=== PATIENT | male | born 1960 | race Hispanic/Latino ===

== ENCOUNTER 2017-04-10 23:18 | Emergency (ER) | payer OTHER ==
[2017-04-10 23:20] VITALS: BMI 30.8
--- NOTE | 2017-04-11 00:09 | C.PDOC ---
History Of Present Illness Patient presents to ED with complaints of being depressed and suicidal ideation. Patient denies suicidal plan and any other physical complaints. Patient was admitted in the past for similar symptoms. Time Seen by Provider: 04/11/17 00:09 Chief Complaint (Nursing): Psychiatric Evaluation History Per: Patient History/Exam Limitations: no limitations Onset/Duration Of Symptoms: Hrs Current Symptoms Are (Timing): Still Present Suicide/Self Injury Attempted (Context): None Modifying Factor(s): None Associated Symptoms: Depression, Suicidal Thoughts. denies: Suicidal Plan Involuntary Hold By: None Recent travel outside of the [place]: No Past Medical History Reviewed: Historical Data, Nursing Documentation, Vital Signs Vital Signs: Last Vital Signs Temp 97.7 F 04/11/17 03:39 Pulse 76 04/11/17 05:32 Resp 18 04/11/17 05:32 BP 160/95 H 04/11/17 05:32 Pulse Ox 98 04/11/17 05:32 - Medical History PMH: Diabetes (Type II), HTN - [facility] GROUP PSYCHOTHERAPY (04/24/16) INDIVIDUAL PSYCHOTHERAPY, COGNITIVE-BEHAVIORAL (04/24/16) Family History: States: No Known Family Hx - Social History Hx Alcohol Use: Yes Hx Substance Use: No - Immunization History Hx Tetanus Toxoid Vaccination: No Hx Influenza Vaccination: No Hx Pneumococcal Vaccination: No Review Of Systems Neurological: Negative for: Altered Mental Status Psych: Positive for: Depression, Suicidal ideation (With no plsn) Physical Exam - Physical Exam Appears: Non-toxic, Other (Awake and alert) Skin: Warm, Dry Head: Normacephalic Eye(s): bilateral: Normal Inspection Oral Mucosa: Moist Neck: Supple Chest: Symmetrical, No Tenderness Cardiovascular: Rhythm Regular Respiratory: No Rales, No Rhonchi, No Wheezing Gastrointestinal/Abdominal: Soft, No Tenderness Neurological/Psych: Oriented x3, Normal Speech, Normal Cognition ED Course And Treatment - Laboratory Results Result Diagrams: 04/11/17 00:40 04/11/17 00:40 ECG: Interpreted By Me, Viewed By Me ECG Rhythm: Sinus Rhythm (72), Nonspecific Changes O2 Sat by Pulse Oximetry: 95 (Room air) Pulse Ox Interpretation: Normal - Radiology CXR: Interpreted by Me, Viewed By Me CXR Interpretation: No: Infiltrates, Fracture, Pnemothorax Progress Note: Ordered blood work and Urinalysis. Crisis notified. pt was accepted in transfer by dr wagner Disposition Counseled Patient/Family Regarding: Studies Performed, Diagnosis - Disposition Disposition: OTHER INSTITUTION Disposition Time: 00:09 Condition: FAIR Forms: [facility] ([place]) - Clinical Impression Clinical Impression: Depression - Scribe Statement The provider has reviewed the documentation as recorded by the Scribe Julia Gomez All medical record entries made by the Scribe were at my direction and personally dictated by me. I have reviewed the chart and agree that the record accurately reflects my personal performance of the history, physical exam, medical decision making, and the department course for this patient. I have also personally directed, reviewed, and agree with the discharge instructions and disposition.
[2017-04-11 00:18] LABS: SQUAMOUS EPITHIAL 2 /hpf (0-5); URINE BILIRUBIN NEGATIVE (NEGATIVE); URINE BLOOD 1+ (NEGATIVE); URINE CLARITY Hazy (Clear); URINE COLOR Yellow (YELLOW); URINE GLUCOSE (UA) NORMAL (Normal); URINE LEUKOCYTE ESTERASE NEG Leu/uL (Negative); URINE NITRATE NEGATIVE (NEGATIVE); URINE PROTEIN 3+ mg/dL (NEGATIVE); URINE UROBILINOGEN NORMAL mg/dL (0.2-1.0)
[2017-04-11 00:27] LABS: BARBITURATES, UR NEGATIVE (NEGATIVE); BENZODIAZEPINES, UR NEGATIVE (NEGATIVE); OPIATES, UR NEGATIVE (NEGATIVE); PHENCYCLIDINE, UR NEGATIVE (NEGATIVE)
[2017-04-11 00:43] LABS: BASO # 0.1 K/uL (0.0-0.2); BASO % 1.1 % (0.0-2.0); EOS # 0.2 K/uL (0.0-0.7); EOS % 2.1 % (0.0-4.0); HEMOGLOBIN 14.4 g/dL (12.0-18.0); LYMPH # 2.2 K/uL (1.0-4.3); LYMPH % 24.5 % (20.0-40.0); MEAN CELL VOLUME 93.2 fL (80.0-94.0); MEAN CORPUSCULAR HEMOGLOBIN 32.2 pg (27.0-31.0); MEAN CORPUSCULAR HGB CONC 34.5 g/dL (33.0-37.0); MEAN PLATELET VOLUME 8.9 fL (7.2-11.7); MONO # 0.7 K/uL (0.0-0.8); MONO % 7.6 % (0.0-10.0); NEUT # 5.7 K/uL (1.8-7.0); NEUT % 64.7 % (50.0-75.0); RBC 4.49 Mil/uL (4.40-5.90); RED CELL DISTRIBUTION WIDTH 13.5 % (11.5-14.5); WHITE BLOOD COUNT 8.8 K/uL (4.8-10.8)
[2017-04-11 00:58] LABS: ALB/GLOB RATIO 1.3 (1.0-2.1); ALT/SGPT 35 U/L (21-72); AST/SGOT 23 U/L (17-59); BLOOD UREA NITROGEN 22 mg/dL (9-20); CALCIUM 8.6 mg/dl (8.6-10.4); GFR AFRICAN-AMERICAN > 60; GFR NON-AFRICAN AMERICAN 52
[2017-04-11 08:21] VITALS: RESP 18
[2017-04-11 08:37] VITALS: BP 162/90; PULSE 61; TEMP 98.3; O2SAT 98
--- NOTE | 2017-04-11 20:40 | RAD ---
PROCEDURE: CHEST RADIOGRAPH, 1 VIEW HISTORY: psych clearance COMPARISON: None available. FINDINGS: LUNGS: Suboptimal study due to the patient's body habitus. PLEURA: No pneumothorax or pleural fluid seen. CARDIOVASCULAR: Possible cardiomegaly. OSSEOUS STRUCTURES: No significant abnormalities. VISUALIZED UPPER ABDOMEN: Normal. OTHER FINDINGS: None. IMPRESSION: No active disease.
== END 2017-04-11 09:36 | disposition designated cancer center or children's hospital (05) ==
LOC: C.ER 23:18
DX: F32.9 Major depressive disorder, single episode, unspecified (principal); I10 Essential (primary) hypertension; E11.9 Type 2 diabetes mellitus without complications; F17.210 Nicotine dependence, cigarettes, uncomplicated